=== PATIENT | male | born 1960 | race Caucasian/White ===

== ENCOUNTER 2023-06-29 15:29 | Inpatient (IN) ==
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
[2023-06-29 16:30] LABS: Basophils # (auto) 0.09 K/uL (0.00-0.20); Basophils % (auto) 0.6 %; Eosinophils # (auto) 0.34 K/uL (0.00-0.50); Eosinophils % (auto) 2.4 %; Hematocrit (blood only) 44.8 % (42.0-52.0); Hemoglobin 14.5 g/dl (14.0-18.0); Immature Granulocytes # (auto) 0.13 K/uL (0.01-0.20); Immature Granulocytes % (auto) 0.9 %; Lymphocytes # (auto) 2.37 K/uL (1.20-3.40); Lymphocytes % (auto) 16.6 %; Mean Corpuscular Hemoglobin 29.8 pg (25.0-34.0); Mean Corpuscular Hgb Conc 32.4 g/dL (32.0-36.0); Mean Platelet Volume 10.6 fL (9.4-12.4); Monocytes # (auto) 1.49 K/uL (0.11-0.59); Monocytes % (auto) 10.4 %; Neutrophils # (auto) 9.84 K/uL (1.40-6.50); Neutrophils % (auto) 69.1 %; Platelet Count 402 K/uL (130-400); RDW Coefficient of Variation 13.9 % (11.5-14.5); RDW Standard Deviation 47.5 fL (36.4-46.3); Red Blood Count 4.87 M/uL (4.70-6.10); White Blood Count 14.26 K/ul (4.8-10.8)
[2023-06-29] MEDS: ONDANSETRON INJ 2 MG/ML 2 ML VIAL IV STA (16:33)
[2023-06-29] MEDS: MoRPHine SULFATE 4 MG/ML 1 ML CARP\\VIAL IV PRN (16:33)
[2023-06-29] MEDS: dexAMETHasone**PF** 10 MG/ML VIAL IV ONE (16:33)
[2023-06-29] MEDS: SODIUM CHLORIDE 0.9% 1,000 ML IV STA (16:34)
[2023-06-29 16:38] LABS: Alanine Aminotransferase 36 U/L (7-52); Albumin Globulin Ratio 1.3 (0.9-2); Albumin Level 4.2 gm/dl (3.4-5.0); Alkaline Phosphatase 113 U/L (34-104); Anion Gap 10 (3-11); Aspartate Aminotransferase 37 U/L (13-39); BUN Creatinine Ratio 21.4 (10-20); Bilirubin,Total 0.6 mg/dl (0.2-1.0); Blood Urea Nitrogen 15 mg/dl (6-23); C Reactive Protein 3.34 mg/dl (0-0.5); Carbon Dioxide 23 mmol/L (21-32); Chloride 106 mmol/L (98-107); Est GFR (African American) 115.6 ml/min; Est GFR (Non-African American) 99.7 ml/min; Globulin 3.2 gm/dl (2.5-4.0); Glucose 84 mg/dl (70-99(Fasting)); Lipase 21 U/L (11-82); Sodium 139 mmol/L (136-145); Total Protein 7.4 gm/dl (6.0-8.3)
[2023-06-29] MEDS: OPTIRAY 320 100ml IV ONE (17:25)
[2023-06-29] MEDS ORDERED: VANCOMYCIN CONSULT ACTIVE PRN (18:21)
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
[2023-06-29 18:44] LABS: Appearance Urine Clear (Clear); Bilirubin Urine Negative (Negative); Blood Urine Negative (Negative); Color Urine Yellow; Glucose Urine UA Negative (Negative); Ketones Urine 1+ (Negative); Leukocyte Esterase Urine Negative (Negative); Nitrite Urine Negative (Negative); Protein Urine Negative (Negative); Specific Gravity Urine 1.018 (1.000-1.030); Urobilinogen Urine Negative (Negative)
[2023-06-29] MEDS: cefTRIAXone SODIUM 2,000 MG/50 ML BAG IV STA (19:18)
[2023-06-29] MEDS: VANCOMYCIN HCL 2,000 MG in SODIUM CHLORIDE 0.9% 500 ML IV ONE (20:07)
[2023-06-30] MEDS ORDERED: LORazepam 0.5 MG TAB PO PRN (01:58)
[2023-06-30] MEDS ORDERED: PROMETHAZINE HCL 6.25 MG in SODIUM CHLORIDE 0.9% 50 ML IV PRN (01:58)
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
[2023-06-30] MEDS: D5W AND NSS 1,000 ML IV ONE (02:17)
[2023-06-30] MEDS: KETOROLAC TROMETHAMINE 15 MG/ML VIAL IV ONE (02:26)
[2023-06-30] MEDS: LIDOCAINE 5% 1 PATCH TD STA (02:27)
[2023-06-30] MEDS: CEFEPIME 2,000 MG/20 ML VIAL IV STA (02:27)
[2023-06-30 03:48] LABS: Basophils # (auto) 0.02 K/uL (0.00-0.20); Basophils % (auto) 0.3 %; Hematocrit (blood only) 42.4 % (42.0-52.0); Hemoglobin 13.9 g/dl (14.0-18.0); Immature Granulocytes # (auto) 0.07 K/uL (0.01-0.20); Immature Granulocytes % (auto) 0.9 %; Lymphocytes # (auto) 0.85 K/uL (1.20-3.40); Lymphocytes % (auto) 11.3 %; Mean Corpuscular Hemoglobin 30.1 pg (25.0-34.0); Mean Corpuscular Hgb Conc 32.8 g/dL (32.0-36.0); Mean Corpuscular Volume 91.8 fL (80.0-100.0); Mean Platelet Volume 10.2 fL (9.4-12.4); Monocytes # (auto) 0.14 K/uL (0.11-0.59); Monocytes % (auto) 1.9 %; Neutrophils # (auto) 6.43 K/uL (1.40-6.50); Neutrophils % (auto) 85.6 %; Platelet Count 354 K/uL (130-400); RDW Coefficient of Variation 13.5 % (11.5-14.5); RDW Standard Deviation 45.8 fL (36.4-46.3); Red Blood Count 4.62 M/uL (4.70-6.10); White Blood Count 7.51 K/ul (4.8-10.8)
[2023-06-30 03:58] LABS: Calcium 9.2 mg/dl (8.6-10.3); Creatinine Clr Calc Pharmacy 89.8 ml/min; Est GFR (African American) 112.4 ml/min; Est GFR (Non-African American) 96.9 ml/min; Potassium 3.7 mmol/L (3.5-5.1)
[2023-06-30] MEDS: MoRPHine SULFATE 4 MG/ML 1 ML CARP\\VIAL IV PRN (08:51)
[2023-06-30] MEDS: FLUTICASONE/VILANTEROL 100/25MCG 14 PUFFS/INHALER INH SCH (08:51)
[2023-06-30] MEDS: amLODIPine BESYLATE 5 MG TAB PO SCH (08:52)
[2023-06-30] MEDS: PREGABALIN 75 MG CAP PO SCH (08:52)
[2023-06-30] MEDS: ATOVAQUONE 750 MG/5 ML UDC PO SCH (08:52)
[2023-06-30] MEDS: predniSONE 1 MG TAB PO SCH (08:52)
[2023-06-30] MEDS: FERROUS SULFATE 325 MG TAB PO SCH (08:53)
[2023-06-30] MEDS: PANTOprazole 40 MG TAB PO SCH (08:53)
[2023-06-30] MEDS: HYDROXYCHLOROQUINE SULFATE 200 MG TAB PO SCH (08:53)
[2023-06-30] MEDS: COLCHICINE 0.6 MG TAB PO SCH (08:53)
[2023-06-30] MEDS: rOPINIRole HCL 0.25 MG TABLET PO SCH (08:53)
[2023-06-30] MEDS: SODIUM CHLORIDE 0.9% 1,000 ML IV ONE (08:54)
[2023-06-30] MEDS: CEFEPIME 2,000 MG in SYRINGE 0 ML IV SCH (09:04)
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
[2023-06-30] MEDS ORDERED: VANCOMYCIN CONSULT ACTIVE PRN (16:33)
[2023-06-30] MEDS: VANCOMYCIN HCL 1,500 MG in SODIUM CHLORIDE 0.9% 500 ML IV ONE (17:14)
[2023-06-30] MEDS: oxyCODONE HCL IR 5 MG TAB (IMMEDIATE RELEASE) PO PRN (20:30)
[2023-07-01] MEDS: LACTATED RINGER'S 1,000 ML IV SCH
[2023-07-01 04:00] LABS: Basophils # (auto) 0.02 K/uL (0.00-0.20); Basophils % (auto) 0.2 %; Eosinophils # (auto) 0.01 K/uL (0.00-0.50); Eosinophils % (auto) 0.1 %; Hematocrit (blood only) 38.9 % (42.0-52.0); Hemoglobin 12.6 g/dl (14.0-18.0); Immature Granulocytes # (auto) 0.08 K/uL (0.01-0.20); Immature Granulocytes % (auto) 0.6 %; Lymphocytes # (auto) 1.28 K/uL (1.20-3.40); Lymphocytes % (auto) 9.8 %; Mean Corpuscular Hemoglobin 29.6 pg (25.0-34.0); Mean Corpuscular Hgb Conc 32.4 g/dL (32.0-36.0); Mean Corpuscular Volume 91.5 fL (80.0-100.0); Monocytes # (auto) 1.21 K/uL (0.11-0.59); Monocytes % (auto) 9.3 %; Neutrophils # (auto) 10.46 K/uL (1.40-6.50); Platelet Count 330 K/uL (130-400); RDW Coefficient of Variation 13.5 % (11.5-14.5); RDW Standard Deviation 45.7 fL (36.4-46.3); Red Blood Count 4.25 M/uL (4.70-6.10); White Blood Count 13.06 K/ul (4.8-10.8)
[2023-07-01 04:17] LABS: Albumin Globulin Ratio 1.3 (0.9-2); Albumin Level 3.6 gm/dl (3.4-5.0); BUN Creatinine Ratio 29.2 (10-20); Bilirubin,Total 0.5 mg/dl (0.2-1.0); Calcium 8.8 mg/dl (8.6-10.3); Creatinine Clr Calc Pharmacy 103.6 ml/min; Est GFR (African American) 119.2 ml/min; Est GFR (Non-African American) 102.8 ml/min; Globulin 2.7 gm/dl (2.5-4.0); Magnesium 2.4 mg/dl (1.7-2.4); Phosphorus 2.4 mg/dl (2.5-4.9); Potassium 4.1 mmol/L (3.5-5.1); Total Protein 6.3 gm/dl (6.0-8.3)
[2023-07-01] MEDS: VANCOMYCIN HCL 1,000 MG in SODIUM CHLORIDE 0.9% 500 ML IV SCH (05:52)
[2023-07-01] MEDS: LIDOCAINE 5% 1 PATCH TD SCH (08:25)
[2023-07-01] MEDS ORDERED: POTASSIUM PHOS 3 MMOL/1 ML INFUSION IV STA (08:50)
[2023-07-01] MEDS: POTASSIUM PHOSPHATE 9 MMOL in SODIUM CHLORIDE 0.9% 250 ML IV ONE (09:12)
--- NOTE | 2023-07-01 11:21 | Hospitalist Progress Note ---
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 Per admitting provider with addendum: Sepsis Epidural and paravertebral abscesses Osteomyelitis of the spine Sepsis, pt tachycardic with leukocytosis on admission, infectious source epidural and paravertebral abscesses, spinal osteomyelitis Immunocompromised patient hx SLE on chronic immunosuppression Rx (prednisone, plaquanil and Rituxan) Secondary to lumbar spine infection (osteomyelitis/epidural and paravertebral abscesses on imaging) Hx epidural injection last month by [facility] lead cargo mover Case discussed with the office of pt's managing consultant clinical professor Dr Heather Phoenix at [phone]. Discussed with fellow Dr Christel Crain who noted attending of record was Dr Mikki Acuña. Recommended to continue with prednisone 6mg daily to avoid adrenal crisis, no CI to use of plaquanil in this setting. 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 Leukocytosis intially improved no worsening. Tachycardia improving. (Patient accepted for transfer by Dr. Torres of Neurosurgery department as per ER provider. Transfer paperwork already completed by ED provider.) N.p.o (pt has been allowed to eat as almost 48hours awaiting a bed)., hold home aspirin in anticipation of intervention (Patient denies history of aspirin intake for vascular disease history.) Pt was seen by ortho spine surgeon per son's request on 06/30 and recommended the following: "It is my recommendation the patient await transfer to [facility] where he has infectious disease and rheumatological physicians available to manage his very complex case. Patient's son and family understand and agree." Currently awaiting transfer to [facility]. Diet: NPO in anticipation of procedure, IV fluids DVT prophylaxis. SCDs Re: Possible procedure Full code Dispo: being transferred to [facility] Admission and Anticipated Discharge Date Admission Date: June 30, 2023 Subjective pt seen multiple times during the day. initially in AM, son at bedside. Son would like ortho spine to see here for further recs. Later after discussion with transfer center, discussed transfer with son. Review of Systems Review of Systems: All systems reviewed & are unremarkable except as noted in Subjective Physical Exam Physical Exam: General: Alert, oriented. No acute distress Psych: Appropriate mood and affect Neuro: [place], difficulty with movements in the bed HEENT: NC/AT CV: RRR Resp: Breath sounds clear bilaterally, no increased effort of breathing. Abdomen: Soft, nontender, nondistended. No guarding. No organomegaly appreciated. Extremities: No edema in lower extremities bilaterally. Results & Data Results & Data Vital Signs (Past 12 Hours) Vital Signs Temp Pulse Pulse Resp BP Pulse Ox O2 Del Method 07/01/23 08:00 71 07/01/23 07:30 36.7 C 72 18 135/84 96 Room Air 07/01/23 02:51 36.6 C 74 18 115/77 96 Room Air 07/01/23 00:10 81
--- NOTE | 2023-07-01 11:22 | Hospitalist Progress Note ---
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 Per admitting provider with addendum: Sepsis Epidural and paravertebral abscesses Osteomyelitis of the spine Sepsis, pt tachycardic with leukocytosis on admission, infectious source epidural and paravertebral abscesses, spinal osteomyelitis Immunocompromised patient hx SLE on chronic immunosuppression Rx (prednisone, plaquanil and Rituxan) Secondary to lumbar spine infection (osteomyelitis/epidural and paravertebral abscesses on imaging) Hx epidural injection last month by [facility] eviction specialist Case discussed with the office of pt's information engineer Dr Heather Phoenix at [phone]. Discussed with fellow Dr Christel Crain who noted attending of record was Dr Mikki Acuña. Recommended to continue with prednisone 6mg daily to avoid adrenal crisis, no CI to use of plaquanil in this setting. 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 Leukocytosis and tacycardia improving before discharge. (Patient accepted for transfer by Dr. Torres of Neurosurgery department as per ER provider. Transfer paperwork already completed by ED provider.) N.p.o., hold home aspirin in anticipation of intervention (Patient denies history of aspirin intake for vascular disease history.) Diet: NPO in anticipation of procedure, IV fluids DVT prophylaxis. SCDs Re: Possible procedure Full code Dispo: being transferred to [facility] Admission and Anticipated Discharge Date Admission Date: June 30, 2023 Results & Data Results & Data Vital Signs (Past 12 Hours) Vital Signs Temp Pulse Pulse Resp BP Pulse Ox O2 Del Method 07/01/23 08:00 71 07/01/23 07:30 36.7 C 72 18 135/84 96 Room Air 07/01/23 02:51 36.6 C 74 18 115/77 96 Room Air 07/01/23 00:10 81
--- NOTE | 2023-07-01 14:56 | Pharmacy Report ---
Pharmacy PK ABX Note - Date of Service July 01, 2023 - Assessment and Plan Assessment 63 year old M receiving vancomycin and cefepime for epidural abscess. Awaiting transfer to outside facility. PMHx significant for COPD, SLE on chronic immunosuppression (prednisone/rituxan), hx of nocardiosis on chronic atovaquone suppression. Presenting with back pain/inability to walk. CT of spine suggestive of discitis/osteomyelitis and suspected epidural abscess. Plan Vancomycin * Patient re-loaded with vancomycin 1500 mg iv x 1 last evening (had received a one time dose on 06/28 of vancomycin, however consult d/c) * Vancomycin 1000 mg iv q 12 hours was started this AM - obtained random vancomycin level due to changing renal function and to ensure dosing appropriate * Vancomycin random level came back at ~16 mcg/ml - will plan to increase vancomycin dosing to 1250 mg iv q12 hours to target higher AUC/JOHANN 500-600 due to severity of infection * Will plan to recheck level in next 2-3 days or sooner if renal function changes Pharmacy will continue to follow and will adjust dose/frequency as necessary. Thank you. Pharmacy has transitioned to AUC monitoring for vancomycin. AUC/JOHANN is the preferred PK/PD target and is associated with decreased risk of nephrotoxicity compared to traditional trough targets.
--- NOTE | 2023-07-01 15:05 | Orthopedic Consultation ---
Date of Consultation July 01, 2023 Assessment & Plan (1) Pathologic fracture of lumbar vertebra: Assessment L1 pathologic fracture with possible epidural abscess. Plan at this time the patient had a cochlear implant cannot obtain MRI imaging of the lumbar spine. He is currently neurologically intact and relatively comfortable. It is my recommendation the patient await transfer to [facility] where he has infectious disease and rheumatological physicians available to manage his very complex case. Patient's son and family understand and agree. History of Present Illness Reason for Consultation: Back pain Attending Physician: Ivory Zepeda MD History of Present Illness This is a very pleasant 63-year-old male that presents to the hospital with back and bilateral leg pain and weakness. Workup demonstrates evidence of pathologic compression fracture of L1 and inferior endplate erosion of T12 with epidural fluid collection consistent with possible epidural abscess. Patient has significant history of being immunocompromised. He has been managed predominantly at [place] and [facility]. He is currently waiting transfer. At this point he states his pain is improved. He denies any consistent numbness or tingling or weakness in the lower extremities at this time. He has improved since his admission. Allergies Allergy/AdvReac Type Severity Reaction Status Date / Time No Known Drug Allergies Allergy Unknown Verified 06/29/23 18:36 Home Medications Medication Instructions Recorded Confirmed Type amlodipine 10 mg tablet 10 mg PO DAILY 06/30/23 06/30/23 History aspirin 81 mg tablet,delayed 162 mg PO DAILY 06/30/23 06/30/23 History release atovaquone 750 mg/5 mL oral 750 mg PO DAILY 06/30/23 06/30/23 History suspension budesonide-formoterol HFA 80 2 puff inhalation BID 06/30/23 06/30/23 History mcg-4.5 mcg/actuation aerosol inhaler calcium carbonate 600 mg-vitamin 1 tab PO DAILY 06/30/23 06/30/23 History D3 5 mcg (200 unit) tablet (Calcium 600 + D(3)) colchicine 0.6 mg tablet 0.6 mg PO DAILY 06/30/23 06/30/23 History ferrous sulfate 325 mg (65 mg 325 mg PO Q OTHER DAY 06/30/23 06/30/23 History iron) tablet hydroxychloroquine 200 mg tablet 200 mg PO DAILY 06/30/23 06/30/23 History ibuprofen 400 mg tablet 400 mg PO Q4 PRN Pain 06/30/23 06/30/23 History omega-3 fatty acids 1,000 mg 1,000 mg PO DAILY 06/30/23 06/30/23 History capsule pantoprazole 40 mg tablet,delayed 40 mg PO DAILY 06/30/23 06/30/23 History release prednisone 1 mg tablet 1 mg PO DAILY 06/30/23 06/30/23 History prednisone 5 mg tablet 5 mg PO DAILY 06/30/23 06/30/23 History pregabalin 75 mg capsule 75 mg PO TID 06/30/23 06/30/23 History rituximab 10 mg/mL 0 mg IV DIRECTED 06/30/23 06/30/23 History concentrate,intravenous (Rituxan) ropinirole 0.5 mg tablet 0.5 mg PO BID 06/30/23 06/30/23 History tizanidine 4 mg capsule 4 mg PO TID 06/30/23 06/30/23 History Patient History Medical History Interstitial lung disease GERD (gastroesophageal reflux disease) Rheumatoid arthritis Vasculitis SLE (systemic lupus erythematosus related syndrome) Closed compression fracture of lumbar vertebra Social History Smoking Status: Former smoker Second Hand Exposure: No; Do You Dip or Chew Tobacco: No; Tobacco Cessation Education Requested by Patient: No Hx Alcohol Use: No Hx Substance Use: No Preferred Language: Frisian Communication Ability: Effective Pricing Consultant Required: No Beliefs That Will Affect Care: Cultural Current Living Situation: Alone Other Information That Helps Us Care for You: No Feels Safe at Home: Yes Safety Concerns: Feels Safe At This Time Assistive Devices: Glasses and Hearing Aid - Bilateral Physical Exam Physical Exam: On exam patient is sitting up. He is cooperative. He demonstrates reasonable plantarflexion dorsiflexion quadriceps bilaterally. He has areas of scarring where he has healed significant vasculitis to lower extremities. His sensory is diminished. Results & Data Vital Signs (Past 12 Hours) Vital Signs Temp Pulse Pulse Resp BP Pulse Ox O2 Del Method 07/01/23 12:21 36.7 C 70 18 130/81 97 Room Air 07/01/23 08:00 71 07/01/23 07:30 36.7 C 72 18 135/84 96 Room Air (1) Pathologic fracture of lumbar vertebra Encounter type: initial encounter Qualified Code(s): M84.48XA - Pathological fracture, other site, initial encounter for fracture
[2023-07-01] MEDS: VANCOMYCIN HCL 1,250 MG in SODIUM CHLORIDE 0.9% 250 ML IV SCH (16:18)
[2023-07-01] MEDS ORDERED: VANCOMYCIN HCL 1,000 MG in SODIUM CHLORIDE 0.9% 250 ML IV SCH (17:00)
[2023-07-01] MEDS: tiZANidine HCL 4 MG TABLET PO PRN (20:13)
[2023-07-01 23:01] LABS: Influenza A virus by PCR Negative (Neg); Influenza B virus by PCR Negative (Neg); RSV by PCR Negative (Neg); SARS CoV2 RNA(COVID-19) Ceph NEGATIVE (Negative)
[2023-07-02 06:32] LABS: Albumin Globulin Ratio 1.4 (0.9-2); Albumin Level 3.6 gm/dl (3.4-5.0); BUN Creatinine Ratio 28.2 (10-20); Bilirubin,Total 0.4 mg/dl (0.2-1.0); Calcium 8.9 mg/dl (8.6-10.3); Creatinine Clr Calc Pharmacy 94.7 ml/min; Est GFR (African American) 114.9 ml/min; Est GFR (Non-African American) 99.2 ml/min; Globulin 2.6 gm/dl (2.5-4.0); Magnesium 2.1 mg/dl (1.7-2.4); Phosphorus 2.2 mg/dl (2.5-4.9); Potassium 3.9 mmol/L (3.5-5.1); Total Protein 6.2 gm/dl (6.0-8.3)
[2023-07-02 06:46] LABS: Basophils # (auto) 0.05 K/uL (0.00-0.20); Basophils % (auto) 0.6 %; Eosinophils # (auto) 0.29 K/uL (0.00-0.50); Eosinophils % (auto) 3.3 %; Hematocrit (blood only) 39.9 % (42.0-52.0); Immature Granulocytes # (auto) 0.07 K/uL (0.01-0.20); Immature Granulocytes % (auto) 0.8 %; Lymphocytes # (auto) 1.34 K/uL (1.20-3.40); Mean Corpuscular Hemoglobin 30.2 pg (25.0-34.0); Mean Corpuscular Hgb Conc 32.6 g/dL (32.0-36.0); Mean Corpuscular Volume 92.6 fL (80.0-100.0); Mean Platelet Volume 10.3 fL (9.4-12.4); Monocytes % (auto) 13.5 %; Neutrophils # (auto) 5.97 K/uL (1.40-6.50); Neutrophils % (auto) 66.8 %; Platelet Count 309 K/uL (130-400); RDW Coefficient of Variation 13.4 % (11.5-14.5); RDW Standard Deviation 46.1 fL (36.4-46.3); Red Blood Count 4.31 M/uL (4.70-6.10); White Blood Count 8.92 K/ul (4.8-10.8)
--- NOTE | 2023-07-02 07:05 | XRay Report ---
XR chest 1V portable CLINICAL HISTORY: Cough. COMPARISON STUDY: No previous studies for comparison. FINDINGS: Anterior cervical spinal fusion is incidentally noted. There are multiple old, healed bilat eral rib fractures. Cardiomediastinal silhouette is unremarkable. There is no pneumothorax or pleural effusion. Linear bibasilar densities favor atelectasis. There is no consolidation to suggest pneumon ia. IMPRESSION: 1. Linear bibasilar densities suggestive of atelectasis. 2. No consolidation to suggest pneumonia. ACT 112: Negative or not required by law. Electronically signed by: Trino Mariscal M.D. 07/02/2023 7:04 AM
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
== END 2023-07-02 10:02 | disposition short-term general hospital (02) | DRG 871 ==
LOC: ED 15:29 → SUATTDRO 06-30 01:57 → EDINP 06-30 01:57 → 2W 06-30 02:45